=== PATIENT | male | born 1935 ===

== ENCOUNTER → 2017-05-15 | Outpatient (CLI) | payer MEDICARE, BC | END | disposition home or self-care (01) | LOC: PCVCCLINIC 10:41 | PROVIDERS: ATTEND Internal Medicine | DX: I25.10 Atherosclerotic heart disease of native coronary artery without angina pectoris (principal); I10 Essential (primary) hypertension; E78.5 Hyperlipidemia, unspecified; I65.23 Occlusion and stenosis of bilateral carotid arteries; Z95.1 Presence of aortocoronary bypass graft; Z79.82 Long term (current) use of aspirin; Z98.52 Vasectomy status; Z88.2 Allergy status to sulfonamides | CPT/HCPCS: 80061; 93005; G0463 ==